=== PATIENT | female | born 1935 | race Caucasian/White ===

== ENCOUNTER 2019-08-11 08:59 | Observation (INO) | payer MEDICARE, BC ==
[2019-08-11] MEDS ORDERED: Sodium Chloride 0.9% 10 ML Syringe FLUSH PRN ×2 (09:53→14:13)
[2019-08-11] MEDS ORDERED: Nitroglycerin 0.4 MG Tab.SL SL ONE (09:53)
[2019-08-11] MEDS ORDERED: Ondansetron 4 MG/2 ML SDV IVPUSH ONE (10:11)
--- NOTE | 2019-08-11 10:12 | EDM.PDOC ---
ED HPI GENERAL MEDICAL PROBLEM - General Chief Complaint: Neuro Symptoms/Deficits Time Seen by Provider: 08/11/19 09:00 Source of Information: Reports: Patient History Limitations: Reports: No Limitations - History of Present Illness INITIAL COMMENTS - FREE TEXT/NARRATIVE: Patient is a pleasant 84-year-old female who presents today with concern for tingling in her arms and on both sides of her face feeling slightly funny. He states the symptoms started when she got up this morning about 7 AM, and were not present last night when she laid down. She also feels nauseous. She got up and a breakfast, then lay back down for a little while but just wasn't feeling right, so came to the ER. She has never had anything like this happen before. She denies any difficulty with speech, facial droop, or weakness on one or the other side of her body. She denies any changes in vision, changes in hearing, or headache. She has not had a recent upper respiratory tract infection, and also denies cough, chest pain or shortness of breath. She did not have a sensation of vertigo like the room is spinning. She also did not have a feeling of syncope like she might pass out. She has no history of hypertension or antihypertensive medications, but has diet controlled diabetes and is on Xarelto also for history of a PE. She also takes gabapentin and some vitamins, but none of her medications are new. She has had occasional urinary symptoms or she has to get up twice tonight and this has been going on all summer. - Related Data Allergies Allergy/AdvReac Type Severity Reaction Status Date / Time codeine Allergy Vomiting Verified 08/11/19 13:52 dirt Allergy Other Uncoded 08/11/19 13:52 Home Meds: Home Meds Ascorbic Acid [Vitamin C] 1,000 mg PO 1400 12/27/14 [History] Calcium Carbonate/Vitamin D3 [Caltrate 600 Plus D3 Tablet] 1 ea PO 1400 [History] Gabapentin 300 mg PO TID 12/27/14 [History] Gluc/Salvador-Msm#1/Vit C/Oliver/Bor [Rrjanig-Hdozy-JUJ Complex Cplt] 1 ea PO 1400 01/09 [History] Krill Oil 500 mg PO DAILY 12/27/14 [History] cycloSPORINE [Restasis] 1 drop EYEBOTH BID 02/02/15 [History] Multivits-Min/Iron/FA/Lutein [Centrum Silver Women Tablet] 1 tab PO DAILY@1400 06/24/18 [History] Propylene Glycol/Peg 400 [Systane 0.3-0.4% Eye Drops] 1 drop EYEBOTH DAILY PRN 06/24/18 [History] Glucosamine/D3/Boswellia Alexia [Osteo Bi-Flex Caplet] 1 each PO BID 08/11/19 [ History] Rivaroxaban [Xarelto] 20 mg PO 18 08/11/19 [History] Past Medical History HEENT History: Reports: Impaired Vision Cardiovascular History: Reports: Blood Clots/VTE/DVT Respiratory History: Reports: PE, Pneumonia, Recurrent Gastrointestinal History: Reports: Chronic Constipation, GERD Genitourinary History: Reports: Urinary Incontinence, UTI, Recurrent Other Genitourinary History: leaky bladder 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 CHECKER History: Musculoskeletal History: Reports: Arthritis, Fracture, Osteoarthritis Other Musculoskeletal History: hx fx wrist, Neurological History: Reports: Neuropathy, Peripheral Endocrine/Metabolic History: Reports: Diabetes, Type II, Other (See Below) Other Endocrine/Metabolic History: states her diabetes is diet controlled Hematologic History: Reports: Anticoagulation Therapy - Infectious Disease History Infectious Disease History: Reports: Chicken Pox, Measles, Mumps - Past Surgical History HEENT Surgical History: Reports: Adenoidectomy, Cataract Surgery, Tonsillectomy Other HEENT Surgeries/Procedures: bilat cataract GI Surgical History: Reports: Colonoscopy, Hernia Repair/Other Female Surgical History: Reports: None Musculoskeletal Surgical History: Reports: None Social & Family History - Family History Family Medical History: Noncontributory - Tobacco Use Smoking Status *Q: Never Smoker - Caffeine Use Caffeine Use: Reports: Coffee Other Caffeine Use: 4-5 cups - Alcohol Use Alcohol Use History: No - Recreational Drug Use Recreational Drug Use: No ED ROS GENERAL - Review of Systems Review Of Systems: ROS reveals no pertinent complaints other than HPI. ED EXAM, GENERAL - Physical Exam Exam: See Below Free Text/Narrative:: Gen.: Alert, very pleasant in no acute distress. Tympanic membranes are clear bilaterally with normal light reflex. Throat is without erythema, mucous members are moist. Head is atraumatic and neck is supple with no cervical lymphadenopathy. Lungs are clear throughout with no wheezes or crackles and heart is regular rate and rhythm. Abdomen positive bowel sounds, soft nondistended nontender. Peripheral pulses +2 in the upper and lower extremities and there is no lower extremity edema. Skin is without obvious lesions or rashes. Neurologic exam shows pupils are equal and reactive and extraocular motion is intact with no nystagmus. Peripheral vision is intact to confrontation. Her facial muscles are symmetric, and she has equal sensation on both sides of her face. Her neck is supple. Muscular strength is equal side to side in both the upper and lower extremities, and her gait is normal. Cerebellar testing shows no deficit in finger to nose or heel to redding. She has no pronator drift. Her speech is clear and coherent, and her recent and remote memory are grossly intact. EKG INTERPRETATION Rhythm: NSR Course - Vital Signs Text/Narrative:: Patient initially quite hypertensive with blood pressure of 201/84. No IV abscess obtained yet, so given 1 dose of sublingual nitroglycerin. Labs ordered , patient's med list not immediately available but CT head ordered once discovered her use of Xarelto. She otherwise has a normal neurologic exam with no apparent deficits at this time. Last Recorded V/S: Last Vital Signs Temp 35.5 C 08/11/19 08:59 Pulse 72 08/11/19 08:59 Resp 18 08/11/19 08:59 BP 201/84 H 08/11/19 09:54 Pulse Ox 99 08/11/19 08:59 - Orders/Labs/Meds Orders: Active Orders 24 hr Category Date Time Status Head wo Cont [CT] Stat Exams 08/11/19 10:32 Taken Sodium Chloride 0.9% [Saline Flush] Med 08/11/19 09:53 Active 10 ml FLUSH ASDIRECTED PRN Peripheral IV Insertion Adult [OM.PC] Routine Oth 08/11/19 09:53 Ordered Medication Orders Acetaminophen (Tylenol) 650 mg PO Q4H PRN PRN Reason: Pain (Mild 1-3)/fever Gabapentin (Neurontin) 300 mg PO TID ADRIANA Lisinopril (Prinivil) 5 mg PO DAILY ADRIANA Nitroglycerin (Nitrostat) 0.4 mg SL Q5M PRN PRN Reason: Chest Pain Non-Formulary Medication (Cyclosporine [Restasis]) 1 drop EYEBOTH BID ADRIANA Non-Formulary Medication (Propylene Glycol/Peg 400 [Systane 0.3-0.4% Eye Drops] ) 1 drop EYEBOTH DAILY PRN PRN Reason: Dry Eyes Non-Formulary Medication (Rivaroxaban [Xarelto]) 20 mg PO 1800 ADRIANA Ondansetron HCl (Zofran Odt) 4 mg PO Q4H PRN PRN Reason: nausea, able to take PO Sodium Chloride (Saline Flush) 10 ml FLUSH ASDIRECTED PRN PRN Reason: Keep Vein Open Last Admin: 08/11/19 09:54 Dose: 10 ml Sodium Chloride (Saline Flush) 10 ml FLUSH ASDIRECTED PRN PRN Reason: Keep Vein Open Labs: Laboratory Tests 08/11/19 08/11/19 08/11/19 Range/Units 09:15 09:15 09:15 WBC 3.9 L (4.5-12.0) X10-3/uL RBC 4.21 (3.23-5.20) x10(6)uL Hgb 12.9 (11.5-15.5) g/dL Hct 38.6 (30.0-51.3) % MCV 91.6 (80-96) fL MCH 30.6 (27.7-33.6) pg MCHC 33.4 (32.2-35.4) g/dL RDW 12.9 (11.5-15.5) % Plt Count 179 (125-369) X10(3)uL MPV 8.7 (7.4-10.4) fL Neut % (Auto) 54.2 (46-82) % Lymph % (Auto) 28.1 (13-37) % [place] % (Auto) 13.5 H (4-12) % Eos % (Auto) 3 (1.0-5.0) % Baso % (Auto) 1 (0-2) % Neut # (Auto) 2.1 (1.6-8.3) # Lymph # (Auto) 1.1 (0.6-5.0) # [place] # (Auto) 0.5 (0.0-1.3) # Eos # (Auto) 0.1 (0.0-0.8) # Baso # (Auto) 0.0 (0.0-0.2) # Sodium 136 (135-145) mmol/L Potassium 4.5 (3.5-5.3) mmol/L Chloride 101 (100-110) mmol/L Carbon Dioxide 29 (21-32) mmol/L BUN 20 H (7-18) mg/dL Creatinine 0.9 (0.55-1.02) mg/dL Est Cr Clr Drug Dosing 46.86 mL/min Estimated GFR (MDRD) 60 (>60) BUN/Creatinine Ratio 22.2 H (9-20) Glucose 117 H (80-116) mg/dL Calcium 9.8 (8.6-10.2) mg/dL Troponin I < 0.017 L (<0.017-0.056) ng/mL Meds: Medications Generic Name Dose Route Start Last Admin Trade Name Freq PRN Reason Stop Dose Admin Acetaminophen 650 mg 08/11/19 14:13 Tylenol PO Q4H PRN Pain (Mild 1-3)/fever Gabapentin 300 mg 08/11/19 21:00 Neurontin PO TID [facility] Lisinopril 5 mg 08/11/19 14:30 Prinivil PO DAILY [facility] Nitroglycerin 0.4 mg 08/11/19 14:20 Nitrostat SL Q5M PRN Chest Pain Non-Formulary Medication 1 drop 08/11/19 21:00 Cyclosporine [Restasis] EYEBOTH BID [facility] Non-Formulary Medication 1 drop 08/11/19 14:17 Propylene Glycol/Peg 400 [Systane 0.3-0.4% Eye Drops] EYEBOTH DAILY PRN Dry Eyes Non-Formulary Medication 20 mg 08/11/19 18:00 Rivaroxaban [Xarelto] PO 1800 [facility] Ondansetron HCl 4 mg 08/11/19 14:13 Zofran Odt PO Q4H PRN nausea, able to take PO Sodium Chloride 10 ml 08/11/19 09:53 08/11/19 09:54 Saline Flush FLUSH 10 ml ASDIRECTED PRN Administration Keep Vein Open Sodium Chloride 10 ml 08/11/19 14:13 Saline Flush FLUSH ASDIRECTED PRN Keep Vein Open Discontinued Medications Generic Name Dose Route Start Last Admin Trade Name Freq PRN Reason Stop Dose Admin Enoxaparin Sodium 40 mg 08/11/19 14:15 Lovenox SUBCUT Q24H [facility] Hydralazine HCl 10 mg 08/11/19 10:26 08/11/19 10:48 Apresoline IVPUSH 08/11/19 10:27 10 mg ONETIME ONE Administration Nitroglycerin 0.4 mg 08/11/19 09:53 08/11/19 09:54 Nitrostat SL 08/11/19 09:54 0.4 mg ONETIME ONE Administration Ondansetron HCl 4 mg 08/11/19 10:11 08/11/19 10:45 Zofran IVPUSH 08/11/19 10:12 4 mg ONETIME ONE Administration - Re-Assessments/Exams Free Text/Narrative Re-Assessment/Exam: 08/11/19 labs reviewed, within normal limits. Patient's blood pressure has come down after 10 mg of hydralazine IV. She does not appear to be on any antihypertensives at this time. She is also feeling very much better. CT head does not show any acute bleed or midline shift per my read, official report is pending. Discussed with patient possible admission to the hospital for resumed hypertensive urgency. She is not showing any signs of a stroke at this time, and she is already anticoagulated as well. Official read returns normal Dr. Qiu accepts for admission to [place] Departure - Departure Time of Disposition: 12:00 Disposition: Refer to Observation Condition: Good Clinical Impression: Hypertensive urgency - Discharge Information *PRESCRIPTION DRUG MONITORING PROGRAM REVIEWED*: Not Applicable *COPY OF PRESCRIPTION DRUG MONITORING REPORT IN PATIENT JAMIA: Not Applicable - My Orders Last 24 Hours: My Active Orders 08/11/19 09:53 Sodium Chloride 0.9% [Saline Flush] 10 ml FLUSH ASDIRECTED PRN Peripheral IV Insertion Adult [OM.PC] Routine 08/11/19 10:32 Head wo Cont [CT] Stat - Assessment/Plan Last 24 Hours: My Active Orders 08/11/19 09:53 Sodium Chloride 0.9% [Saline Flush] 10 ml FLUSH ASDIRECTED PRN Peripheral IV Insertion Adult [OM.PC] Routine 08/11/19 10:32 Head wo Cont [CT] Stat
[2019-08-11] MEDS ORDERED: hydrALAZINE 20 MG/ML SDV IVPUSH ONE (10:26)
--- NOTE | 2019-08-11 14:00 | PCM.HP.2 ---
H&P History of Present Illness - General Date of Service: 08/11/19 Admit Problem/Dx: Admission Diagnosis/Problem Admission Diagnosis/Problem Hypertensive urgency Source of Information: Patient, Provider History Limitations: Reports: No Limitations - History of Present Illness Initial Comments - Free Text/Narative: An 84 yr old female presented to ER with sudden onset of dizziness, headache and numbness/tingling in her right hand this morning. She ate breakfast and showered, started feeling dizzy, did not feel like she was going to pass out. No slurred speech, facial droop, loss of strength in her hand. She does have Diabetic neuropathy in her feet and states same "pins and needles" feeling in her had. She has not dropped anything. Nauseous but resolved in ER, no vomiting. She does not have history of hypertension but systolic blood pressure in ER was 200s. No diarrhea. Sometimes constipation, last bowel movement was yesterday, normal consistency. Has some allergies but no sinus congestion, sore throat, difficulty swallowing. No shortness of breath, chest pain states comes randomly since she had a pulmonary embolism a couple of years ago. Denies any dysuria, frequency, hematuria, or flank pain. Has urine incontinence with sitting, nocturia and urgency. - Related Data Allergies/Adverse Reactions: Allergies Allergy/AdvReac Type Severity Reaction Status Date / Time codeine Allergy Vomiting Verified 08/11/19 13:52 dirt Allergy Other Uncoded 08/11/19 13:52 Home Medications: Home Meds Ascorbic Acid [Vitamin C] 1,000 mg PO 1400 12/27/14 [History] Calcium Carbonate/Vitamin D3 [Caltrate 600 Plus D3 Tablet] 1 ea PO 1400 [History] Gabapentin 300 mg PO TID 12/27/14 [History] Gluc/Salvador-Msm#1/Vit C/Oliver/Bor [Vfageae-Fegap-VEA Complex Cplt] 1 ea PO 1400 01/09 [History] Krill Oil 500 mg PO DAILY 12/27/14 [History] cycloSPORINE [Restasis] 1 drop EYEBOTH BID 12/27/14 [History] Multivits-Min/Iron/FA/Lutein [Centrum Silver Women Tablet] 1 tab PO DAILY@1400 06/24/18 [History] Propylene Glycol/Peg 400 [Systane 0.3-0.4% Eye Drops] 1 drop EYEBOTH DAILY PRN 06/24/18 [History] Glucosamine/D3/Boswellia Alexia [Osteo Bi-Flex Caplet] 1 each PO BID 08/11/19 [ History] Rivaroxaban [Xarelto] 20 mg PO 18 08/11/19 [History] Past Medical History HEENT History: Reports: Impaired Vision Cardiovascular History: Reports: Blood Clots/VTE/DVT, High Cholesterol Respiratory History: Reports: PE, Pneumonia, Recurrent Gastrointestinal History: Reports: Chronic Constipation, GERD Genitourinary History: Reports: Urinary Incontinence, UTI, Recurrent Other Genitourinary History: leaky bladder 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: Musculoskeletal History: Reports: Arthritis, Fracture, Osteoarthritis Other Musculoskeletal History: hx fx wrist, Neurological History: Reports: Neuropathy, Peripheral Endocrine/Metabolic History: Reports: Diabetes, Type II, Other (See Below) Other Endocrine/Metabolic History: states her diabetes is diet controlled Hematologic History: Reports: Anticoagulation Therapy - Infectious Disease History Infectious Disease History: Reports: Chicken Pox, Measles, Mumps - Past Surgical History HEENT Surgical History: Reports: Adenoidectomy, Cataract Surgery, Tonsillectomy Other HEENT Surgeries/Procedures: bilat cataract GI Surgical History: Reports: Colonoscopy, Hernia Repair/Other Female Surgical History: Reports: None Musculoskeletal Surgical History: Reports: None Social & Family History - Family History Family Medical History: Noncontributory - Tobacco Use Smoking Status *Q: Never Smoker Second Hand Smoke Exposure: No - Caffeine Use Caffeine Use: Reports: Coffee Other Caffeine Use: 4-5 cups - Recreational Drug Use Recreational Drug Use: No H&P Review of Systems - Review of Systems: Review Of Systems: See Below General: Denies: Fever, Chills, Malaise, Weakness, Diaphoresis HEENT: Reports: No Symptoms, Glasses Pulmonary: Reports: No Symptoms Cardiovascular: Reports: Chest Pain. Denies: Palpitations, Dyspnea on Exertion Gastrointestinal: Reports: Constipation, Nausea. Denies: Abdominal Pain, Diarrhea, Decreased Appetite, Difficulty Swallowing, Vomiting Genitourinary: Reports: Urgency, Incontinence. Denies: Dysuria, Frequency, Hematuria, Flank Pain Musculoskeletal: Reports: Joint Pain (right hip catches) Skin: Reports: Dryness Neurological: Reports: Dizziness, Headache (gone now), Numbness, Tingling. Denies: Confusion, Trouble Speaking, Difficulty Walking, Weakness Hematologic/Lymphatic: Denies: Anemia, Easy Bleeding, Easy Bruising Immunologic: Reports: Environmental Allergy Exam - Exam Exam: See Below - Vital Signs Vital Signs: Last Vital Signs Temp 35.5 C 08/11/19 08:59 Pulse 72 08/11/19 08:59 Resp 18 08/11/19 08:59 BP 201/84 H 08/11/19 09:54 Pulse Ox 99 08/11/19 08:59 Weight: 69.626 kg - Exam General: Alert, Oriented, Cooperative HEENT: PERRLA, Conjunctiva Clear, EOMI, Hearing Intact, Mucosa Moist & Continental, Nares Patent, Normal Nasal Septum, Posterior Pharynx Clear, TMs Clear Neck: Supple, Trachea Midline, +2 Carotid Pulse wo Bruit. No: Lymphadenopathy Lungs: Clear to Auscultation, Normal Respiratory Effort Cardiovascular: Regular Rate, Regular Rhythm GI/Abdominal Exam: Normal Bowel Sounds, Soft, Non-Tender, No Organomegaly, No Distention, No Abnormal Bruit, No Mass Extremities: No Pedal Edema Peripheral Pulses: 2+: Radial (L), Radial (R), Posterior Tibial (L), Posterior Tibial (R), Dorsalis Pedis (L), Dorsalis Pedis (R) Skin: Warm, Dry, Intact Neuro Extensive - Mental Status: Alert, Oriented x3, Normal Mood/Affect, Normal Cognition, Memory Intact Neuro Extensive - Motor, Sensory, Reflexes: CN II-XII Intact, Normal Gait, Normal Reflexes. No: Babinski DTR: 2+: Bicep (L), Bicep (R), Tricep (L), Tricep (R), Patella (L), Patella (R) , Achilles (L), Achilles (R) Psychiatric: Alert, Normal Affect, Normal Mood - Patient Data Lab Results Last 24 hrs: Laboratory Results - last 24 hr 08/11/19 08/11/19 08/11/19 Range/Units 09:15 09:15 09:15 WBC 3.9 L (4.5-12.0) X10-3/uL RBC 4.21 (3.23-5.20) x10(6)uL Hgb 12.9 (11.5-15.5) g/dL Hct 38.6 (30.0-51.3) % MCV 91.6 (80-96) fL MCH 30.6 (27.7-33.6) pg MCHC 33.4 (32.2-35.4) g/dL RDW 12.9 (11.5-15.5) % Plt Count 179 (125-369) X10(3)uL MPV 8.7 (7.4-10.4) fL Neut % (Auto) 54.2 (46-82) % Lymph % (Auto) 28.1 (13-37) % [place] % (Auto) 13.5 H (4-12) % Eos % (Auto) 3 (1.0-5.0) % Baso % (Auto) 1 (0-2) % Neut # (Auto) 2.1 (1.6-8.3) # Lymph # (Auto) 1.1 (0.6-5.0) # [place] # (Auto) 0.5 (0.0-1.3) # Eos # (Auto) 0.1 (0.0-0.8) # Baso # (Auto) 0.0 (0.0-0.2) # Sodium 136 (135-145) mmol/L Potassium 4.5 (3.5-5.3) mmol/L Chloride 101 (100-110) mmol/L Carbon Dioxide 29 (21-32) mmol/L BUN 20 H (7-18) mg/dL Creatinine 0.9 (0.55-1.02) mg/dL Est Cr Clr Drug Dosing 46.86 mL/min Estimated GFR (MDRD) 60 (>60) BUN/Creatinine Ratio 22.2 H (9-20) Glucose 117 H (80-116) mg/dL Calcium 9.8 (8.6-10.2) mg/dL Troponin I < 0.017 L (<0.017-0.056) ng/mL Result Diagrams: 08/11/19 09:15 08/11/19 09:15 Imaging Impressions Last 24 hrs: No acute findings, evidence of small vessel disease. See report for further details. - Problem List (1) Hypertensive urgency SNOMED Code(s): 049706756 ICD Code: I16.0 - HYPERTENSIVE URGENCY Status: Acute Current Visit: Yes (2) Dizziness SNOMED Code(s): 904496460, 887952693 ICD Code: R42 - DIZZINESS AND GIDDINESS Status: Acute Current Visit: Yes (3) Diabetes mellitus SNOMED Code(s): 30370545 ICD Code: E11.9 - TYPE 2 DIABETES MELLITUS WITHOUT COMPLICATIONS Status: Acute Current Visit: No Problem Details: Currently untreated. Blood sugars were in the 150s and below range here. Metformin may be helpful but patient unenthusiastic about another medication. Defer to PCP. Qualifiers: Diabetes mellitus type: type 2 Diabetes mellitus termite helper insulin use: without snf use Diabetes mellitus complication status: with neurologic complications Diabetes mellitus complication detail: with polyneuropathy Qualified Code(s): E11.42 - Type 2 diabetes mellitus with diabetic polyneuropathy (4) Peripheral neuropathy SNOMED Code(s): 533159961 ICD Code: G62.9 - POLYNEUROPATHY, UNSPECIFIED Status: Acute Current Visit : No Problem Details: Continue gabapentin. Qualifiers: Peripheral neuropathy type: polyneuropathy associated with underlying disease Qualified Code(s): G63 - Polyneuropathy in diseases classified elsewhere (5) History of pulmonary embolus (PE) SNOMED Code(s): 066163327 ICD Code: Z86.711 - PERSONAL HISTORY OF PULMONARY EMBOLISM Status: Acute Current Visit: Yes Problem List Initiated/Reviewed/Updated: Yes Orders Last 24hrs: Active Orders 24 hr Category Date Time Status Head wo Cont [CT] Stat Exams 08/11/19 10:32 Taken URINALYSIS W/MICROSCOPIC [UA W/MICROSCOPIC] [URIN] Stat Lab 08/11/19 10:52 Ordered Sodium Chloride 0.9% [Saline Flush] Med 08/11/19 09:53 Active 10 ml FLUSH ASDIRECTED PRN Peripheral IV Insertion Adult [OM.PC] Routine Oth 08/11/19 09:53 Ordered Medication Orders Sodium Chloride (Saline Flush) 10 ml FLUSH ASDIRECTED PRN PRN Reason: Keep Vein Open Last Admin: 08/11/19 09:54 Dose: 10 ml Assessment/Plan Comment:: 1. Admit for observation: blood pressure control, neurochecks, telemetry, serial cardiac enzymes. 2. Received Hydralazine in ER which brought her blood pressure down. Will start Lisinopril 5 mg daily and adjust as needed. 3. PT/OT evaluation for dizziness/balance. 4. Consistent carbohydrate diet, accuchecks BID. 5. FULL CODE. Adjust treatment as necessary. - Mortality Measure Prognosis:: Good
[2019-08-11] MEDS ORDERED: Ondansetron 4 MG Tab.DIS PO PRN (14:13)
[2019-08-11] MEDS ORDERED: Acetaminophen 325 MG Tab PO PRN (14:13)
[2019-08-11] MEDS ORDERED: Enoxaparin 40 MG/0.4 ML Syringe SUBCUT SCH (14:15)
[2019-08-11] MEDS ORDERED: Non-Formulary Medication 1 Each (Propylene Glycol/Peg 400 [Systane 0.3-0.4% Eye Drops] 1 D EYEBOTH PRN (14:17)
[2019-08-11] MEDS ORDERED: Nitroglycerin 0.4 MG Tab.SL SL PRN (14:20)
[2019-08-11] MEDS: Lisinopril 5 MG Tab PO SCH (15:29)
[2019-08-11] MEDS ORDERED: Non-Formulary Medication 1 Each (Rivaroxaban [Xarelto] 20 MG) PO SCH (18:00)
[2019-08-11] MEDS: Gabapentin 300 MG Cap*PTOM PO SCH (20:39)
[2019-08-11] MEDS: Non-Formulary Medication 1 Each (Cyclosporine [Restasis] 1 DROP) EYEBOTH SCH (20:40)
[2019-08-12 08:01] VITALS: PULSE 69
[2019-08-12] MEDS: Gabapentin 300 MG Cap*PTOM PO SCH (08:19)
[2019-08-12] MEDS: Lisinopril 5 MG Tab PO SCH (08:20)
[2019-08-12] MEDS: Non-Formulary Medication 1 Each (Cyclosporine [Restasis] 1 DROP) EYEBOTH SCH (08:24)
--- NOTE | 2019-08-12 08:51 | PCM.DCSUM1 ---
Discharge Summary - Hospital Course HPI Initial Comments: An 84 yr old female presented to ER with sudden onset of dizziness, headache and numbness/tingling in her right hand this morning. She ate breakfast and showered, started feeling dizzy, did not feel like she was going to pass out. No slurred speech, facial droop, loss of strength in her hand. She does have Diabetic neuropathy in her feet and states same "pins and needles" feeling in her had. She has not dropped anything. Nauseous but resolved in ER, no vomiting. She does not have history of hypertension but systolic blood pressure in ER was 200s. No diarrhea. Sometimes constipation, last bowel movement was yesterday, normal consistency. Has some allergies but no sinus congestion, sore throat, difficulty swallowing. No shortness of breath, chest pain states comes randomly since she had a pulmonary embolism a couple of years ago. Denies any dysuria, frequency, hematuria, or flank pain. Has urine incontinence with sitting, nocturia and urgency. Diagnosis: Stroke: No - Discharge Data Discharge Date: 08/12/19 Discharge Disposition: Home, Self-Care 01 Condition: Good - Referral to Home Health Primary Care Physician: Colin Nelson MD - Discharge Diagnosis/Problem(s) (1) Hypertensive urgency SNOMED Code(s): 345920716 ICD Code: I16.0 - HYPERTENSIVE URGENCY Status: Resolved Current Visit: Yes (2) Dizziness SNOMED Code(s): 762958327, 519869406 ICD Code: R42 - DIZZINESS AND GIDDINESS Status: Resolved Current Visit: Yes (3) Diabetes mellitus SNOMED Code(s): 15806385 ICD Code: E11.9 - TYPE 2 DIABETES MELLITUS WITHOUT COMPLICATIONS Status: Chronic Current Visit: No Problem Details: Currently untreated. Blood sugars were in the 150s and below range here. Metformin may be helpful but patient unenthusiastic about another medication. Defer to PCP. Qualifiers: Diabetes mellitus type: type 2 Diabetes mellitus senior living insulin use: without buttermaker use Diabetes mellitus complication status: with neurologic complications Diabetes mellitus complication detail: with polyneuropathy Qualified Code(s): E11.42 - Type 2 diabetes mellitus with diabetic polyneuropathy (4) Peripheral neuropathy SNOMED Code(s): 957624052 ICD Code: G62.9 - POLYNEUROPATHY, UNSPECIFIED Status: Chronic Current Visit: No Problem Details: Continue gabapentin. Qualifiers: Peripheral neuropathy type: polyneuropathy associated with underlying disease Qualified Code(s): G63 - Polyneuropathy in diseases classified elsewhere (5) History of pulmonary embolus (PE) SNOMED Code(s): 727327696 ICD Code: Z86.711 - PERSONAL HISTORY OF PULMONARY EMBOLISM Status: Chronic Current Visit: Yes (6) Hypertension SNOMED Code(s): 27344688 ICD Code: I10 - ESSENTIAL (PRIMARY) HYPERTENSION Status: Acute Current Visit: No Problem Details: Tolerating lisinopril well with blood pressure in 110s/120s. Needs to be on low dose Lisinopril since she is diabetic for renal protection. Qualifiers: Hypertension type: essential hypertension Qualified Code(s): I10 - Essential (primary) hypertension - Patient Summary/Data Consults: Consultations 08/11/19 14:13 OT Evaluation and Treatment [CONS] Routine Please Evaluate and Treat. OT Reason for Consult: dizziness This query below is only for informational purposes and is not editable. Admission Diagnosis/Problem: Hypertensive urgency PT Evaluation and Treatment [CONS] Routine Please Evaluate and Treat. PT Reason for Consult: dizziness This query below is only for informational purposes and is not editable. Admission Diagnosis/Problem: Hypertensive urgency Hospital Course: Patient admitted to floor, started on low dose Lisinopril as she is not on any ACEI and she is Diabetic. She was on this in the past per her hospital records but not sure from patient why this was discontinued. She had 3 sets of troponin which were all negative. Blood pressure last night came down to 114/69, and 146/ 86 this morning before her morning medications. No further chest pain. Sinus rhythm on telemetry. Seen by PT, no issues with balance, no nystagmus, no signs of BPPV. PT did not recommend outpatient PT. - Patient Instructions Diet: Diabetic Diet Activity: As Tolerated Driving: May Drive Today Showering/Bathing: May Shower Notify Provider of: Fever, Increased Pain, Nausea and/or Vomiting Other/Special Instructions: Follow up with Dr Nelson in 1 week to recheck your blood pressure. You were started on Lisinopril for blood pressure which you have been on in the past, you may need adjusted by Dr. Nelson. This medication has a protective effect on your kidneys since you have Diabetes. - Discharge Plan *PRESCRIPTION DRUG MONITORING PROGRAM REVIEWED*: Not Applicable *COPY OF PRESCRIPTION DRUG MONITORING REPORT IN PATIENT JAMIA: Not Applicable Prescriptions/Med Rec: Lisinopril [Prinivil] 5 mg PO DAILY 30 Days #30 tablet Home Medications: Home Meds Ascorbic Acid [Vitamin C] 1,000 mg PO 1400 12/27/14 [History] Calcium Carbonate/Vitamin D3 [Caltrate 600 Plus D3 Tablet] 1 ea PO 1400 [History] Gabapentin 300 mg PO TID 12/27/14 [History] Gluc/[place]vador-Msm#1/Vit C/Oliver/Bor [Kfatrto-Suemu-CGM Complex Cplt] 1 ea PO 1400 01/09 [History] Krill Oil 500 mg PO DAILY 12/27/14 [History] cycloSPORINE [Restasis] 1 drop EYEBOTH BID 12/27/14 [History] Multivits-Min/Iron/FA/Lutein [Centrum Silver Women Tablet] 1 tab PO DAILY@1400 06/24/18 [History] Propylene Glycol/Peg 400 [Systane 0.3-0.4% Eye Drops] 1 drop EYEBOTH DAILY PRN 06/24/18 [History] Glucosamine/D3/Boswellia Alexia [Osteo Bi-Flex Caplet] 1 each PO BID 08/11/19 [ History] Rivaroxaban [Xarelto] 20 mg PO 18 08/11/19 [History] Lisinopril [Prinivil] 5 mg PO DAILY 30 Days #30 tablet 08/12/19 [Rx] Oxygen Therapy Mode: Room Air Forms: ED Department Discharge Referrals: Colin Nelson MD [Primary Care Provider] - - Discharge Summary/Plan Comment DC Time >30 min.: No - Patient Data Vitals - Most Recent: Last Vital Signs Temp 36.6 C 08/12/19 07:56 Pulse 69 08/12/19 07:56 Resp 18 08/12/19 07:56 BP 146/86 H 08/12/19 08:20 Pulse Ox 98 08/12/19 07:56 Orthostatic Blood Pressure [ 181/89 Standing] Orthostatic Blood Pressure [ 205/96 Sitting] Orthostatic Blood Pressure [ 193/95 Supine] Weight - Most Recent: 69.626 kg I&O - Last 24 hours: Intake & Output 08/11/19 08/12/19 08/12/19 22:59 06:59 14:59 Output Total 1300 500 Balance -1300 -500 Lab Results - Last 24 hrs: Laboratory Results - last 24 hr 08/11/19 08/11/19 08/11/19 Range/Units 09:15 09:15 09:15 WBC 3.9 L (4.5-12.0) X10-3/uL RBC 4.21 (3.23-5.20) x10(6)uL Hgb 12.9 (11.5-15.5) g/dL Hct 38.6 (30.0-51.3) % MCV 91.6 (80-96) fL MCH 30.6 (27.7-33.6) pg MCHC 33.4 (32.2-35.4) g/dL RDW 12.9 (11.5-15.5) % Plt Count 179 (125-369) X10(3)uL MPV 8.7 (7.4-10.4) fL Neut % (Auto) 54.2 (46-82) % Lymph % (Auto) 28.1 (13-37) % [place] % (Auto) 13.5 H (4-12) % Eos % (Auto) 3 (1.0-5.0) % Baso % (Auto) 1 (0-2) % Neut # (Auto) 2.1 (1.6-8.3) # Lymph # (Auto) 1.1 (0.6-5.0) # [place] # (Auto) 0.5 (0.0-1.3) # Eos # (Auto) 0.1 (0.0-0.8) # Baso # (Auto) 0.0 (0.0-0.2) # Sodium 136 (135-145) mmol/L Potassium 4.5 (3.5-5.3) mmol/L Chloride 101 (100-110) mmol/L Carbon Dioxide 29 (21-32) mmol/L BUN 20 H (7-18) mg/dL Creatinine 0.9 (0.55-1.02) mg/dL Est Cr Clr Drug Dosing 46.86 mL/min Estimated GFR (MDRD) 60 (>60) BUN/Creatinine Ratio 22.2 H (9-20) Glucose 117 H (80-116) mg/dL POC Glucose (80-116) mg/dL Calcium 9.8 (8.6-10.2) mg/dL Troponin I < 0.017 L (<0.017-0.056) ng/mL Urine Color (YELLOW) Urine Appearance (CLEAR) Urine pH (5.0-6.5) Ur Specific [place] (1.010-1.025) Urine Protein (NEGATIVE) mg/dL Urine Glucose (UA) (NORMAL) mg/dL Urine Ketones (NEGATIVE) mg/dL Urine Occult Blood (NEGATIVE) Urine Nitrite (NEGATIVE) Urine Bilirubin (NEGATIVE) Urine Urobilinogen (NEGATIVE) mg/dL Ur Leukocyte Esterase (NEGATIVE) Urine RBC (0-5) Urine WBC (0-5) Ur Squamous Epith Cells (NS,R,O) Amorphous Sediment Urine Bacteria (NS) 08/11/19 08/11/19 08/11/19 Range/Units 14:00 15:05 17:51 WBC (4.5-12.0) X10-3/uL RBC (3.23-5.20) x10(6)uL Hgb (11.5-15.5) g/dL Hct (30.0-51.3) % MCV (80-96) fL MCH (27.7-33.6) pg MCHC (32.2-35.4) g/dL RDW (11.5-15.5) % Plt Count (125-369) X10(3)uL MPV (7.4-10.4) fL Neut % (Auto) (46-82) % Lymph % (Auto) (13-37) % [place] % (Auto) (4-12) % Eos % (Auto) (1.0-5.0) % Baso % (Auto) (0-2) % Neut # (Auto) (1.6-8.3) # Lymph # (Auto) (0.6-5.0) # [place] # (Auto) (0.0-1.3) # Eos # (Auto) (0.0-0.8) # Baso # (Auto) (0.0-0.2) # Sodium (135-145) mmol/L Potassium (3.5-5.3) mmol/L Chloride (100-110) mmol/L Carbon Dioxide (21-32) mmol/L BUN (7-18) mg/dL Creatinine (0.55-1.02) mg/dL Est Cr Clr Drug Dosing mL/min Estimated GFR (MDRD) (>60) BUN/Creatinine Ratio (9-20) Glucose (80-116) mg/dL POC Glucose 119 H (80-116) mg/dL Calcium (8.6-10.2) mg/dL Troponin I < 0.017 L (<0.017-0.056) ng/mL Urine Color Yellow (YELLOW) Urine Appearance Clear (CLEAR) Urine pH 8.0 H (5.0-6.5) Ur Specific [place] 1.010 (1.010-1.025) Urine Protein Negative (NEGATIVE) mg/dL Urine Glucose (UA) Normal (NORMAL) mg/dL Urine Ketones Negative (NEGATIVE) mg/dL Urine Occult Blood Negative (NEGATIVE) Urine Nitrite Negative (NEGATIVE) Urine Bilirubin Negative (NEGATIVE) Urine Urobilinogen Normal (NEGATIVE) mg/dL Ur Leukocyte Esterase Negative (NEGATIVE) Urine RBC 0-5 (0-5) Urine WBC 0-5 (0-5) Ur Squamous Epith Cells Few H (NS,R,O) Amorphous Sediment Few Urine Bacteria Few H (NS) 08/11/19 08/12/19 Range/Units 21:03 06:40 WBC (4.5-12.0) X10-3/uL RBC (3.23-5.20) x10(6)uL Hgb (11.5-15.5) g/dL Hct (30.0-51.3) % MCV (80-96) fL MCH (27.7-33.6) pg MCHC (32.2-35.4) g/dL RDW (11.5-15.5) % Plt Count (125-369) X10(3)uL MPV (7.4-10.4) fL Neut % (Auto) (46-82) % Lymph % (Auto) (13-37) % [place] % (Auto) (4-12) % Eos % (Auto) (1.0-5.0) % Baso % (Auto) (0-2) % Neut # (Auto) (1.6-8.3) # Lymph # (Auto) (0.6-5.0) # [place] # (Auto) (0.0-1.3) # Eos # (Auto) (0.0-0.8) # Baso # (Auto) (0.0-0.2) # Sodium (135-145) mmol/L Potassium (3.5-5.3) mmol/L Chloride (100-110) mmol/L Carbon Dioxide (21-32) mmol/L BUN (7-18) mg/dL Creatinine (0.55-1.02) mg/dL Est Cr Clr Drug Dosing mL/min Estimated GFR (MDRD) (>60) BUN/Creatinine Ratio (9-20) Glucose (80-116) mg/dL POC Glucose 100 (80-116) mg/dL Calcium (8.6-10.2) mg/dL Troponin I < 0.017 L (<0.017-0.056) ng/mL Urine Color (YELLOW) Urine Appearance (CLEAR) Urine pH (5.0-6.5) Ur Specific [place] (1.010-1.025) Urine Protein (NEGATIVE) mg/dL Urine Glucose (UA) (NORMAL) mg/dL Urine Ketones (NEGATIVE) mg/dL Urine Occult Blood (NEGATIVE) Urine Nitrite (NEGATIVE) Urine Bilirubin (NEGATIVE) Urine Urobilinogen (NEGATIVE) mg/dL Ur Leukocyte Esterase (NEGATIVE) Urine RBC (0-5) Urine WBC (0-5) Ur Squamous Epith Cells (NS,R,O) Amorphous Sediment Urine Bacteria (NS) Med Orders - Current: Current Medications Acetaminophen (Tylenol) 650 mg PO Q4H PRN PRN Reason: Pain (Mild 1-3)/fever Last Admin: 08/12/19 00:31 Dose: 650 mg Gabapentin (Neurontin) 300 mg PO TID [facility] Last Admin: 08/12/19 08:19 Dose: 300 mg Lisinopril (Prinivil) 5 mg PO DAILY [facility] Last Admin: 08/12/19 08:20 Dose: 5 mg Nitroglycerin (Nitrostat) 0.4 mg SL Q5M PRN PRN Reason: Chest Pain Non-Formulary Medication (Cyclosporine [Restasis]) 1 drop EYEBOTH BID [facility] Last Admin: 08/12/19 08:24 Dose: 1 drop Non-Formulary Medication (Propylene Glycol/Peg 400 [Systane 0.3-0.4% Eye Drops] ) 1 drop EYEBOTH DAILY PRN PRN Reason: Dry Eyes Non-Formulary Medication (Rivaroxaban [Xarelto]) 20 mg PO 1800 ADRIANA Last Admin: 08/11/19 18:32 Dose: 20 mg Ondansetron HCl (Zofran Odt) 4 mg PO Q4H PRN PRN Reason: nausea, able to take PO Sodium Chloride (Saline Flush) 10 ml FLUSH ASDIRECTED PRN PRN Reason: Keep Vein Open Last Admin: 08/11/19 09:54 Dose: 10 ml Sodium Chloride (Saline Flush) 10 ml FLUSH ASDIRECTED PRN PRN Reason: Keep Vein Open Discontinued Medications Enoxaparin Sodium (Lovenox) 40 mg SUBCUT Q24H ADRIANA Hydralazine HCl (Apresoline) 10 mg IVPUSH ONETIME ONE Stop: 08/11/19 10:27 Last Admin: 08/11/19 10:48 Dose: 10 mg Nitroglycerin (Nitrostat) 0.4 mg SL ONETIME ONE Stop: 08/11/19 09:54 Last Admin: 08/11/19 09:54 Dose: 0.4 mg Ondansetron HCl (Zofran) 4 mg IVPUSH ONETIME ONE Stop: 08/11/19 10:12 Last Admin: 08/11/19 10:45 Dose: 4 mg *Q Meaningful Use (DIS) - Stroke *Q Antithrombotic Contraindications Stroke *Q: Alternative [place] Request PT
[2019-08-12 10:27] VITALS: BP 114/69
== END 2019-08-12 09:50 | disposition home or self-care (01) ==
LOC: FB.ED 08:59 → FB.MS 12:00
PROVIDERS: ADMIT Family Medicine; ATTEND Family Medicine
DX: I16.0 Hypertensive urgency (principal); I10 Essential (primary) hypertension; I44.4 Left anterior fascicular block; E11.42 Type 2 diabetes mellitus with diabetic polyneuropathy; E78.00 Pure hypercholesterolemia, unspecified; Z88.5 Allergy status to narcotic agent; Z91.09 Other allergy status, other than to drugs and biological substances; Z86.711 Personal history of pulmonary embolism; Z79.01 Long term (current) use of anticoagulants; Z79.899 Other long term (current) drug therapy
CPT/HCPCS: 36415; 70450; 80048; 81001; 82962; 84484; 85025; 93005; 96374; 96375; 97161; 99285; A9270; G0378; J0360; J2405; 99284

== ENCOUNTER 2020-12-03 09:28 | Emergency (ER) | payer MEDICARE, BC ==
[2020-12-03 09:46] VITALS: BP 145/67; PULSE 79
--- NOTE | 2020-12-03 09:59 | EDM.PDOC ---
ED HPI GENERAL MEDICAL PROBLEM - General Stated Complaint: ?? Time Seen by Provider: 12/03/20 09:40 Source of Information: Reports: Patient History Limitations: Reports: No Limitations - History of Present Illness INITIAL COMMENTS - FREE TEXT/NARRATIVE: c/o R knee pain x 1m pain worse, took APAP x 2 this AM that did not help had pain in R knee in spring, saw Dr Nelson and then Dr Hylton who was there that day, Dr Hylton injected the knee and she was pain free until Oct has had pain lives alone, shoveled snoe for 45 min 1w ago, has had inc'd aggravation using cane x 1m saw Dr Ashton 3d ago who recommended APAP altho has not been using consistently has used ice and heat Treatments MATTRESS FINISHER: Reports: Acetaminophen Right Knee Pain Score (Numeric/FACES): 10 - Related Data Allergies Allergy/AdvReac Type Severity Reaction Status Date / Time codeine Allergy Vomiting Verified 08/11/19 13:52 dirt Allergy Other Uncoded 08/11/19 13:52 Home Meds: Home Meds Ascorbic Acid [Vitamin C] 1,000 mg PO 1400 12/27/14 [History] Calcium Carbonate/Vitamin D3 [Caltrate 600 Plus D3 Tablet] 1 ea PO 1400 12/27/14 [History] Gabapentin 300 mg PO TID 12/27/14 [History] Glucosam/Chond-Msm1/C/Oliver/Bor [Cflurtq-Dsgdy-XTU Complex Cplt] 1 ea PO 1400 12/27/14 [History] Krill Oil 500 mg PO DAILY 12/27/14 [History] cycloSPORINE [Restasis] 1 drop EYEBOTH BID 12/27/14 [History] Multivit-Min/Iron/Folic/Lutein [Centrum Silver Women Tablet] 1 tab PO DAILY@1400 06/24/18 [History] Propylene Glycol/Peg 400 [Systane 0.3-0.4% Eye Drops] 1 drop EYEBOTH DAILY PRN 06/24/18 [History] Glucosamine/D3/Boswellia Alexia [Osteo Bi-Flex Caplet] 1 each PO BID 08/11/19 [History] Rivaroxaban [Xarelto] 20 mg PO 18 08/11/19 [History] lisinopriL [Prinivil] 5 mg PO DAILY 30 Days #30 tablet 08/12/19 [Rx] Past Medical History HEENT History: Reports: Impaired Vision Cardiovascular History: Reports: Blood Clots/VTE/DVT Respiratory History: Reports: PE, Pneumonia, Recurrent Gastrointestinal History: Reports: Chronic Constipation, GERD Genitourinary History: Reports: Urinary Incontinence, UTI, Recurrent Other Genitourinary History: leaky bladder 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 History: Musculoskeletal History: Reports: Arthritis, Fracture, Osteoarthritis Other Musculoskeletal History: hx fx wrist, Neurological History: Reports: Neuropathy, Peripheral Endocrine/Metabolic History: Reports: Diabetes, Type II, Other (See Below) Other Endocrine/Metabolic History: states her diabetes is diet controlled Hematologic History: Reports: Anticoagulation Therapy - Infectious Disease History Infectious Disease History: Reports: Chicken Pox, Measles, Mumps - Past Surgical History HEENT Surgical History: Reports: Adenoidectomy, Cataract Surgery, Tonsillectomy Other HEENT Surgeries/Procedures: bilat cataract GI Surgical History: Reports: Colonoscopy, Hernia Repair/Other Female Surgical History: Reports: None Musculoskeletal Surgical History: Reports: None Social & Family History - Family History Family Medical History: No Pertinent Family History - Tobacco Use Tobacco Use Status *Q: Never Tobacco User - Caffeine Use Caffeine Use: Reports: Coffee Other Caffeine Use: 4-5 cups - Recreational Drug Use Recreational Drug Use: No Review of Systems - Review of Systems Review Of Systems: See Below Constitutional: Reports: No Symptoms Eyes: Reports: No Symptoms Ears: Reports: No Symptoms Nose: Reports: No Symptoms Mouth/Throat: Reports: No Symptoms Respiratory: Reports: No Symptoms Cardiovascular: Reports: No Symptoms GI/Abdominal: Reports: No Symptoms Genitourinary: Reports: No Symptoms Musculoskeletal: Reports: Joint Pain Skin: Reports: No Symptoms Neurological: Reports: No Symptoms Psychiatric: Reports: No Symptoms ED EXAM, GENERAL - Physical Exam Exam: See Below Exam Limited By: No Limitations General Appearance: Alert, WD/WN, No Apparent Distress Head: Atraumatic, Normocephalic Neck: Normal Inspection Respiratory/Chest: No Respiratory Distress Cardiovascular: Regular Rate, Rhythm GI/Abdominal: Soft, Non-Tender Back Exam: Normal Inspection Extremities: No Pedal Edema, Other (pt points to inferior insertion of LCL as being tender, 1+ tender there, NT at superior insertion or joint line, no effusion, knee fairly unremarkable and symmetric, no other tenderness) Neurological: Alert, Oriented, CN II-XII Intact, Normal Cognition, Normal Gait, No Motor/Sensory Deficits Psychiatric: Normal Affect, Normal Mood Skin Exam: Warm, Dry, Intact, Normal Color, No Rash Lymphatic: No Adenopathy Course - Vital Signs Last Recorded V/S: Last Vital Signs Temp 36.6 C 12/03/20 09:44 Pulse 79 12/03/20 09:44 Resp 18 12/03/20 09:44 BP 145/67 H 12/03/20 09:44 Pulse Ox 98 12/03/20 09:44 - Orders/Labs/Meds Orders: Active Orders 24 hr Category Date Time Status Knee 3V Rt [CR] Stat Exams 12/03/20 09:37 Taken URIC ACID [CHEM] Stat Lab 12/03/20 09:50 Received Labs: Laboratory Tests 12/03/20 12/03/20 12/03/20 Range/Units 09:50 09:50 09:50 WBC 5.7 (3.0-10.3) x10-3/uL RBC 4.15 (3.60-5.20) x10(6)uL Hgb 12.3 (11.4-15.5) g/dL Hct 37.8 (34.2-48.2) % MCV 91.0 (76.7-100.5) fL MCH 29.6 (23.9-33.9) pg MCHC 32.5 (31.9-34.8) g/dL RDW 13.1 (12.3-16.5) % Plt Count 208 (151-488) x10(3)uL MPV 8.6 (7.1-12.4) fL Neut % (Auto) 66.4 (30.8-76.2) % Lymph % (Auto) 18.3 L (18.4-52.1) % [place] % (Auto) 11.9 (4.4-15.7) % Eos % (Auto) 2.4 (0.6-8.1) % Baso % (Auto) 1.0 (0.2-1.5) % Neut # (Auto) 3.8 (1.5-6.3) x10-3/uL Lymph # (Auto) 1.0 (1.0-4.4) x10-3/uL [place] # (Auto) 0.7 (0.3-1.0) x10-3/uL Eos # (Auto) 0.1 (0.0-0.8) x10-3/uL Baso # (Auto) 0.1 (0.0-0.1) x10-3/uL Sodium 131 L (135-145) mmol/L Potassium 4.4 (3.5-5.3) mmol/L Chloride 97 L (100-110) mmol/L Carbon Dioxide 26 (21-32) mmol/L BUN 28 H (7-18) mg/dL Creatinine 1.1 H (0.55-1.02) mg/dL Est Cr Clr Drug Dosing TNP Estimated GFR (MDRD) 47 L (>60) BUN/Creatinine Ratio 25.5 H (9-20) Glucose 143 H (80-116) mg/dL Calcium 9.5 (8.6-10.2) mg/dL Total Bilirubin 0.4 (0.1-1.3) mg/dL AST 14 D (5-25) IU/L ALT 23 D (12-36) U/L Alkaline Phosphatase 66 (56-112) IU/L C-Reactive Protein 0.4 L (0.5-0.9) mg/dL Total Protein 6.9 (6.0-8.0) g/dL Albumin 3.5 (3.2-4.6) g/dL Globulin 3.4 g/dL Albumin/Globulin Ratio 1.0 - Re-Assessments/Exams Free Text/Narrative Re-Assessment/Exam: 12/03/20 11:32 uric acid pending at d/c workup with inc'd BUN/creat, not on diuretic, pt to d/w PCP has MCL sprain on PE without sig joint effusion prelim ED read of XR shows no change in 1m of R knee images Departure - Departure Time of Disposition: 11:29 Disposition: Home, Self-Care 01 Condition: Good Clinical Impression: Sprain of medial collateral ligament of right knee, Renal insufficiency - Discharge Information *PRESCRIPTION DRUG MONITORING PROGRAM REVIEWED*: Not Applicable *COPY OF PRESCRIPTION DRUG MONITORING REPORT IN PATIENT JAMIA: Not Applicable Instructions: Medial Collateral Knee Ligament Sprain Additional Instructions: Use ice for 10 minutes 4 times a day for 3 days, longer if needed. Take acetaminophen 500 mg 2 tabs 4 times a day for 1-2 weeks, longer if needed. Avoid direct pressure on the sensitive area. Use knee brace for the next week if it does not cause pain on the sensitive area. See your doctor in 4-5 days for further recommendations. Discuss your kidney function with your doctor. Sepsis Event Note (ED) - Evaluation Sepsis Screening Result: No Definite Risk - Focused Exam Vital Signs: Vital Signs Temp Pulse Resp BP Pulse Ox 12/03/20 09:44 36.6 C 79 18 145/67 H 98 - My Orders Last 24 Hours: My Active Orders 12/03/20 09:37 Knee 3V Rt [CR] Stat 12/03/20 09:50 URIC ACID [CHEM] Stat - Assessment/Plan Last 24 Hours: My Active Orders 12/03/20 09:37 Knee 3V Rt [CR] Stat 12/03/20 09:50 URIC ACID [CHEM] Stat
--- NOTE | 2020-12-05 10:26 | CR ---
INDICATION: Right knee pain x1 month, worse. RIGHT KNEE: Three views of the right knee were obtained 12/03/20 and compared with 11/04/20. Chondrocalcinosis is noted as previously with joint spaces appearing similar to the previous examination and grossly maintained. Minimal osteoarthrotic appearing hypertrophic changes are noted at the patellofemoral joint and at the intercondylar notch. Very minimal hypertrophic changes again noted medially off the tibia. No acute bone or joint abnormality was identified. IMPRESSION: Stable minimal osteoarthritis - chondrocalcinosis may be on the basis of osteoarthritis and/or CPPD arthropathy. MTDD
== END 2020-12-03 11:56 | disposition home or self-care (01) ==
LOC: FB.ED 09:28
DX: S83.411A Sprain of medial collateral ligament of right knee, initial encounter (principal); N28.9 Disorder of kidney and ureter, unspecified; E11.42 Type 2 diabetes mellitus with diabetic polyneuropathy; Z86.718 Personal history of other venous thrombosis and embolism; Z86.711 Personal history of pulmonary embolism; Z79.01 Long term (current) use of anticoagulants; Z79.899 Other long term (current) drug therapy; Z88.5 Allergy status to narcotic agent; X58.XXXA Exposure to other specified factors, initial encounter
CPT/HCPCS: 36415; 73562-RT; 80053; 84550; 85025; 86140; 99282; 99283-25

== ENCOUNTER 2022-07-28 21:46 | Emergency (ER) | payer MEDICARE, BC ==
[2022-07-28] MEDS ORDERED: Amoxicillin/Clavulanate K 500-125 MG Tab PO ONE (21:47)
[2022-07-28 23:21] VITALS: BP 164/72; PULSE 88
== END 2022-07-28 23:10 | disposition home or self-care (01) ==
LOC: FB.ED 21:46
DX: L03.116 Cellulitis of left lower limb (principal); I80.3 Phlebitis and thrombophlebitis of lower extremities, unspecified; K21.9 Gastro-esophageal reflux disease without esophagitis; M19.90 Unspecified osteoarthritis, unspecified site; E11.42 Type 2 diabetes mellitus with diabetic polyneuropathy; Z88.5 Allergy status to narcotic agent; Z91.048 Other nonmedicinal substance allergy status
CPT/HCPCS: 36415; 85379; 99283; A9270-GY